=== PATIENT | female | born 1995 | race Caucasian/White ===

== ENCOUNTER 2019-02-19 15:05 | Emergency (ER) | payer MEDICAID ==
[~2019-02-19] VITALS: Ht 154.9 cm; Wt 60.8 kg
[2019-02-19 15:22] VITALS: Ht 154.9 cm; Wt 60.8 kg
[2019-02-19 17:16] LABS: BASOPHIL % 0.5 % (0-2); PLATELET COUNT 232 x10^3mcL (130-400); RED CELL DISTRIBUTION WIDTH 13.6 % (11.5-14.5)
[2019-02-19 18:16] VITALS: BP 117/79
== END 2019-02-19 18:16 | disposition home or self-care (01) ==
LOC: ED 15:05
PROVIDERS: Emergency Medicine
DX: N83.201 Unspecified ovarian cyst, right side (principal)
CPT/HCPCS: 36415; J1885

== ENCOUNTER 2019-03-31 09:40 | Emergency (ER) | payer OTHER ==
[~2019-03-31] VITALS: Ht 154.9 cm; Wt 74.8 kg
[2019-03-31 09:49] VITALS: BP 118/53; Ht 154.9 cm; Wt 74.8 kg
== END 2019-03-31 13:21 | disposition left against medical advice (07) ==
LOC: ED 09:40
DX: Z53.21 Procedure and treatment not carried out due to patient leaving prior to being seen by health care provider (principal)

== ENCOUNTER 2020-01-13 15:40 | Emergency (ER) | payer OTHER ==
[~2020-01-13] VITALS: Ht 154.9 cm; Wt 63.5 kg
[2020-01-13 15:50] VITALS: BP 129/92; Ht 154.9 cm; Wt 63.5 kg
[2020-01-13 16:27] LABS: BASOPHIL % 0.4 % (0-2); PLATELET COUNT 293 x10^3mcL (130-400); RED CELL DISTRIBUTION WIDTH 12.9 % (11.5-14.5)
== END 2020-01-13 17:36 | disposition left against medical advice (07) ==
LOC: ED 15:40
PROVIDERS: Emergency Medicine
DX: O23.41 Unspecified infection of urinary tract in pregnancy, first trimester (principal); Z3A.08 8 weeks gestation of pregnancy
CPT/HCPCS: Q0092